=== PATIENT | female | born 1970 | race Caucasian/White ===

== ENCOUNTER 2016-09-07 07:14 | Emergency (ER) | payer MEDICAID ==
[~2016-09-07] VITALS: Ht 165.1 cm; Wt 60.3 kg
--- NOTE | 2016-09-07 07:15 | NUR ---
To bed 2 a 45 yo female bibra for abdl pain since gallbladder removed 2 days ago. Pain score is 10/10. Patient denies n/v. Abdominal dressings intact, no s/s of bleeding. Patient is aaox4. Skin is warm and dry. Afebrile. VSS. Gowned patient. Cardiac monitoring in place. Awaiting for er md madera.
[2016-09-07] MEDS ORDERED: IV SET PRIMARY 1 EA INFUS.SET MC ONE (07:23)
[2016-09-07] MEDS ORDERED: IV NS 0.9% 500 ML IV ONE (07:23)
[2016-09-07] MEDS ORDERED: ONDANSETRON HCL/PF 4 MG/2 ML VIAL ONE ×2 (07:23→09:03)
[2016-09-07] MEDS ORDERED: IV NS 0.9% 500 ML BAG IV ONE (07:30)
[2016-09-07] MEDS ORDERED: ONDANSETRON HCL/PF 4 MG/2 ML VIAL IVP ONE (07:30)
[2016-09-07] MEDS ORDERED: HYDROMORPHONE 1 MG/1 ML DISP.SYRIN ONE (07:40)
--- NOTE | 2016-09-07 07:45 | NUR ---
PT MEDICATED ORDERED.
--- NOTE | 2016-09-07 07:48 | NUR ---
XRAY DONE AT BS.
[2016-09-07 07:56] LABS: BASOPHILS % (AUTO) 0.4 % (0.0-2.0); EOSINOPHILS # (AUTO) 0.2 /CMM (0.0-0.7); EOSINOPHILS % (AUTO) 1.5 % (0.0-6.0); HEMATOCRIT 40 % (33-45); HEMOGLOBIN 13.6 g/dL (11.5-14.8); LYMPHOCYTES # (AUTO) 2.9 /CMM (0.8-4.8); LYMPHOCYTES % (AUTO) 25.5 % (20.0-44.0); MEAN CORPUSCULAR HEMOGLOBIN 31 PG (26.0-33.0); MEAN CORPUSCULAR HGB CONC 34 g/dl (31.0-36.0); MEAN CORPUSCULAR VOLUME 92 fL (82-100); MONOCYTES # (AUTO) 0.5 /CMM (0.1-1.30); MONOCYTES % (AUTO) 4.7 % (2.0-12.0); NEUTROPHILS # (AUTO) 7.7 /CMM (1.8-8.9); NEUTROPHILS % (AUTO) 67.9 % (43.0-81.0); PLATELET COUNT (AUTO) 268 /CMM (150-450); RDW COEFFICIENT OF VARIATION 13.6 (11.5-15.0); RED BLOOD CELL COUNT(AUTO) 4.39 MIL/uL (4.0-5.2); WHITE BLOOD COUNT (AUTO) 11.3 K/uL (4.3-11.0)
[2016-09-07 07:59] LABS: CREATININE 0.9 mg/dL (0.6-1.3); POTASSIUM 4.2 mmol/L (3.5-5.1)
[2016-09-07] MEDS ORDERED: HYDROMORPHONE 1 MG/1 ML DISP.SYRIN IV ONE (08:00)
--- NOTE | 2016-09-07 08:00 | NUR ---
URINE SAMPLE OBTAINED. CALLED FOR [employer]
[2016-09-07 08:05] LABS: ALBUMIN 3.4 g/dL (3.4-5.0); BILIRUBIN,DIRECT 0.1 mg/dL (0.0-0.2); BILIRUBIN,TOTAL 0.4 mg/dL (0.2-1.0)
--- NOTE | 2016-09-07 08:12 | NUR ---
Patient is resting comfortably in bed. VSS. Family member at bs.
[2016-09-07 08:23] LABS: APPEARANCE,URINE SL CLOUDY (CLEAR); BILIRUBIN,URINE NEGATIVE (NEGATIVE); BLOOD, URINE TRACE-INTA Ery/uL (NEGATIVE); COLOR,URINE YELLOW (YELLOW); KETONES,URINE NEGATIVE (NEGATIVE); LEUKOCYTE ESTERASE ,URINE NEGATIVE (NEGATIVE); NITRITE, URINE NEGATIVE (NEGATIVE); PH,URINE 6.5 (5.0-8.0); PROTEIN,URINE NEGATIVE (NEGATIVE); UGLUCOSE NEGATIVE (NEGATIVE); UROBILINOGEN,URINE 0.2 EU/dL (0.2)
[2016-09-07 08:30] LABS: CALCIUM, SERUM 8.8 mg/dL (8.5-10.1)
[2016-09-07 08:51] LABS: ADD URINE CULTURE YES; BACTERIA,URINE Few /HPF (None Seen); SQUAMOUS EPITHELIAL CELL,UR Many /HPF (None Seen); WBC,URINE 0-2 /HPF (0-3); YEAST,URINE Moderate /HPF (None Seen)
[2016-09-07] MEDS ORDERED: DOCUSATE SODIUM LIQ 100 MG/10 ML UDC ONE (08:55)
[2016-09-07] MEDS ORDERED: DOCUSATE SODIUM LIQ 100 MG/10 ML UDC PO ONE (09:00)
--- NOTE | 2016-09-07 09:15 | NUR ---
PT NOTED VOMITING AGAIN. MD MADE AWARE. MEDICATED ORDERED.
[2016-09-07] MEDS ORDERED: ONDANSETRON HCL/PF - ER 4 MG/2 ML VIAL IV ONE (09:30)
--- NOTE | 2016-09-07 09:40 | NUR ---
Patient is resting comfortably in bed with eyes closed. Easily aroused. VSS
--- NOTE | 2016-09-07 10:00 | NUR ---
IV removed. Catheter intact and site benign. Pressure and 4x4 applied to site. No bleeding noted.Patient discharged to home in stable condition. Written and verbal after care instructions given. Patient verbalizes understanding of instruction.
[2016-09-07 10:02] VITALS: BP 124/69
== END 2016-09-07 10:03 | disposition home or self-care (01) ==
LOC: ER 07:16
DX: R10.84 Generalized abdominal pain (principal); G89.18 Other acute postprocedural pain; I10 Essential (primary) hypertension; Z90.49 Acquired absence of other specified parts of digestive tract
CPT/HCPCS: 36415; 74020; 80048; 80076; 81001; 83690; 85025; 87086; 96361; 96374; 96375; 99285; A4606; J1170; J2405 ×2; J7040; Z7610; 81000-TC